=== PATIENT | female | born 1985 | race Caucasian/White ===

== ENCOUNTER 2021-01-04 22:48 | Inpatient (IN) ==
[2021-01-04] MEDS ORDERED: OXYTOCIN 30 UNITS/500 ML BAG IV PRN (23:36)
[2021-01-04] MEDS ORDERED: LACTATED RINGER'S 1,000 ML IV PRN (23:36)
[2021-01-05 00:11] LABS: Hematocrit (blood only) 38.3 % (37-47); Hemoglobin 12.9 g/dL (12.0-16.0); Mean Corpuscular Hemoglobin 30.1 pg (25-34); Mean Corpuscular Hgb Conc 33.7 g/dL (32-36); Mean Corpuscular Volume 89.3 fL (80-100); Mean Platelet Volume 11.6 fL (7.4-10.4); Platelet Count 227 K/uL (130-400); RDW Coefficient of Variation 12.7 % (11.5-14.5); Red Blood Count 4.29 M/uL (4.2-5.4); White Blood Count 11.52 K/uL (4.8-10.8)
[2021-01-05] MEDS ORDERED: LIDOCAINE HCL 1% 20 ML VIAL ONE (02:25)
--- NOTE | 2021-01-05 03:13 | Delivery Summary ---
Vaginal Delivery Summary Date of Service January 05, 2021 Spontaneous vaginal delivery the patient arrived in active labor she did not request epidural she was group B strep negative Covid negative she rapidly progressed to fully dilated however at this stage when she started to push her heart rates stayed at a bradycardia of 60-70 and sometimes reaching as high as 100 after approximately 10 minutes of trying to push through this I recommended a small episiotomy the patient agreed episiotomy was cut with scissors and patient was able to deliver in occiput anterior position mouth and then nares were suctioned there was no meconium there was no nuchal cord gentle traction baby delivered without difficulty live vigorous infant cord clamped and cut cord gases obtained placenta removed with gentle traction IV Pitocin started should be noted there was an irregularity in the cord will be sent to pathology. Right medial lateral episiotomy repaired with 3-0 Vicryl sponge instrument counts correct rectal exam negative for defects estimated blood loss 150 mL [facility] Vaginal Delivery Charge Vaginal Delivery Codes: 23688 global code for the antepartum, delivery, and post-
[2021-01-05 04:52] LABS: Cord Venous Blood HCO3 24 mmol/L (18.4-26.8); Cord Venous Blood PCO2 50 mmHg (30.4-57.2); Cord Venous Blood PO2 22 mmHg (14.1-43.3); O2 Saturation Cord Venous Bld < 60.0 % (<68)
[2021-01-05] MEDS ORDERED: BENZOCAINE 20% AER SPR 82.5 GM CAN EXT PRN (05:43)
[2021-01-05] MEDS ORDERED: OXYTOCIN 30 UNITS/500 ML BAG IV PRN (05:43)
[2021-01-05] MEDS ORDERED: HYDROCORTISONE ACETATE 25 MG SUPP PR PRN (05:43)
[2021-01-05] MEDS ORDERED: DIPHTHERIA/TETANUS/PERTUSSIS 0.5 ML SYR/VIAL IM ONE (05:43)
[2021-01-05] MEDS ORDERED: ACETAMINOPHEN 325 MG TAB PO PRN (05:43)
[2021-01-05] MEDS ORDERED: oxyCODONE/ACETAMINOPHEN 5mg/325mg TAB PO PRN (05:43)
[2021-01-05] MEDS ORDERED: bisacodyL 10 MG SUPP PR PRN (05:43)
[2021-01-05] MEDS ORDERED: SUPERCREAM 0.870% 15 GM JAR EXT PRN (05:43)
--- NOTE | 2021-01-05 07:25 | Obstetrical Progress Note ---
Date of Service January 05, 2021 Assessment & Plan (1) state: well, cont current care Subjective Ambulation: ambulating normally Voiding: no voiding problems Diet Tolerance:: regular diet Lochia:: Small Feeding Type:: breast feeding Current Pain Level(1-10): 2 Results & Data ([facility]) Vital Signs (Past 12 Hours) Vital Signs Temp Pulse Pulse Resp BP BP 01/05/21 05:15 98.2 F 64 16 104/67 01/05/21 04:46 64 16 104/67 01/05/21 04:31 66 18 115/67 01/05/21 04:15 62 18 116/71 01/05/21 04:01 67 16 114/68 01/05/21 03:45 69 16 118/70 01/05/21 03:30 76 18 126/74 01/05/21 03:15 75 16 121/72 01/05/21 03:01 78 16 115/69 01/05/21 02:45 98.2 F 73 18 115/68 01/05/21 01:04 98.1 F 53 L 20 142/83 H 01/04/21 23:26 63 132/88 01/04/21 23:05 98.2 F 67 18 154/90 H 01/04/21 23:01 98.2 F 67 18 154/90 H
[2021-01-05] MEDS: DOCUSATE SODIUM 100 MG CAP PO SCH ×2 (07:58→21:08)
[2021-01-05] MEDS: PRENATAL VITAMIN 1 TAB PO SCH (07:58)
[2021-01-05] MEDS: IBUPROFEN 600 MG TAB PO PRN ×3 (08:01→21:08)
[2021-01-06 06:32] LABS: Hematocrit (blood only) 35.4 % (37-47); Mean Corpuscular Hemoglobin 30.5 pg (25-34); Mean Corpuscular Hgb Conc 33.9 g/dL (32-36); Mean Corpuscular Volume 89.8 fL (80-100); Platelet Count 203 K/uL (130-400); RDW Standard Deviation 42.5 fL (36.4-46.3); Red Blood Count 3.94 M/uL (4.2-5.4); White Blood Count 9.42 K/uL (4.8-10.8)
--- NOTE | 2021-01-06 06:53 | Obstetrical Progress Note ---
Date of Service January 06, 2021 Assessment & Plan (1) state: Recovering normally. Continue routine care. Patient may consider d/c this evening but is more likely to want to stay until PPD#2. Subjective Ambulation: ambulating normally Voiding: no voiding problems Passing Gas:: Yes Diet Tolerance:: regular diet Lochia:: Small Feeding Type:: breast feeding Physical Exam Constitutional WD/WN, vitals as above Eyes PERRL, conjunctivae normal, anicteric sclerae Neck normal visual inspection Respiratory normal respiratory effort and able to speak in complete sentences; no res piratory distress and no labored breathing Cardiovascular Rate/Rhythm: regular rate and regular rhythm Extremities: no edema Chest (Breasts) Chest: normal inspection of chest Gastrointestinal (Abdomen) Inspection/Auscultation: abdomen normal to inspection Soft, postgravid Psychiatric A+Ox3, euthymic affect Genitourinary OB Exam Abdomen: + fundal height Fundus: + firm and + relation to umbilicus (fundus just below umbilicus); not tender Results & Data ([facility]) Vital Signs (Past 12 Hours) Vital Signs Temp Pulse Resp BP Pulse Ox 01/05/21 23:30 97.9 F 81 16 103/65 98 01/05/21 21:00 98.1 F 63 16 115/71 97
[2021-01-06] MEDS: DOCUSATE SODIUM 100 MG CAP PO SCH ×2 (09:05→19:55)
[2021-01-06] MEDS: IBUPROFEN 600 MG TAB PO PRN ×2 (09:05→16:11)
[2021-01-06] MEDS: PRENATAL VITAMIN 1 TAB PO SCH (09:05)
[2021-01-06] MEDS ORDERED: bisacodyL 5 MG TABEC PO SCH (20:00)
[2021-01-07] MEDS: IBUPROFEN 600 MG TAB PO PRN (04:41)
[2021-01-07 06:42] LABS: Hematocrit (blood only) 34.8 % (37-47); Hemoglobin 11.9 g/dL (12.0-16.0)
--- NOTE | 2021-01-07 07:50 | Obstetrical Progress Note ---
Date of Service January 07, 2021 Assessment & Plan (1) state: PP2 s/p , meeting all milestones. s/p rhogam. Stable for discharge home today Subjective Ambulation: ambulating normally Voiding: no voiding problems Passing Gas:: Yes Diet Tolerance:: regular diet Lochia:: Small Feeding Type:: breast feeding Pain well managed with medication Review of Systems Denies fevers, chills, n/v, KRAMER, CP, SOB Physical Exam Constitutional WD/WN, vitals as above no acute distress Respiratory normal respiratory effort, lungs clear to auscultation Cardiovascular RRR, no murmur, no edema Gastrointestinal (Abdomen) Percussion/Palpation: abdomen soft; abdomen nontender fundus firm at umbilicus and NT Musculoskeletal BLE symmetric, nonerythematous, nontender Results & Data ([facility]) Vital Signs (Past 12 Hours) Vital Signs Temp Pulse Resp BP Pulse Ox 01/06/21 23:40 98.1 F 67 18 102/65 01/06/21 19:50 98.1 F 68 16 105/73 97
[2021-01-07] MEDS: DOCUSATE SODIUM 100 MG CAP PO SCH (08:17)
[2021-01-07] MEDS: PRENATAL VITAMIN 1 TAB PO SCH (08:17)
== END 2021-01-07 12:20 | disposition home or self-care (01) | DRG 807 ==
LOC: OPB 22:48 → 4S1 22:49 → 4S2 01-05 05:41

== ENCOUNTER 2022-09-28 10:41 | Inpatient (IN) ==
[2022-09-28] MEDS ORDERED: LIDOCAINE 1% LOCAL 20 ML VIAL INFIL PRN (11:02)
[2022-09-28] MEDS ORDERED: LACTATED RINGER'S 1,000 ML IV PRN (11:02)
[2022-09-28] MEDS ORDERED: OXYTOCIN 30 UNITS/500 ML BAG IV PRN ×2 (11:02→16:35)
[2022-09-28 11:48] LABS: Hematocrit (blood only) 36.5 % (34.1-44.9); Hemoglobin 12.4 g/dl (12.0-16.0); Mean Corpuscular Volume 88.2 fL (80.0-100.0); Mean Platelet Volume 11.1 fL (9.4-12.3); Platelet Count 226 K/uL (130-400); RDW Coefficient of Variation 12.1 % (11.5-14.5); RDW Standard Deviation 38.7 fL (36.4-46.3); Red Blood Count 4.14 M/uL (3.93-5.22); White Blood Count 11.16 K/ul (4.8-10.8)
--- NOTE | 2022-09-28 14:37 | History & Physical Report ---
Date of Service September 28, 2022 Assessment & Plan (1) Supervision of normal intrauterine in multigravida: (2) Need for rhogam due to Rh negative mother: (3) Normal labor: Plan - Patient admitted to labor and delivery for active labor - Patient presented to outpatient OB clinic with concern for contractions overnight and was found to be 6 cm dilated - Patient was send to L&D for labor and subsequently admitted - Patient currently 7.5/100/-1 w/ evidence of contractions - Contractions progressing, consider ROM - Patient declines epidural - Labs ordered History of Present Illness Chief Complaint: Labor Primary Care Provider: Cayla Hunt MD Natalie is a 36F currently at 40 3/7 with ELICEO 09/25/22 determined by LMP of 12/19/21 who presented to L&D for labor. Complications: Rh - Movement: Yes Fluid Loss/ROM: No Bloody show/discharge: Light spotting External FHT and uterine monitor: Category 1, reactive tracing, good FHT variability, average 135, contractions q3mins Last OB appointment: 09/27, regular care Labs: Blood Type: O- Antibody Screen: Negative Hg/Hct (today): 12.4/36.5 WBC/Plt (today): 11.16/226 Rubella: Immune RPR: Non-reactive Gonorrhea: Negative Chlamydia: Negative HIV: Negative HbSAg: Negative GBS: Negative Cff-DNA: Low risk Panorama: Low risk Allergies Allergy/AdvReac Type Severity Reaction Status Date / Time No Known Allergies Allergy Verified 09/28/22 11:11 Home Medications Medication Instructions Recorded Confirmed Type prenat.vits,katarina,[id number] 1 tab PO DAILY 06/16/20 09/28/22 History ascorbic acid (vitamin C) 2 tab PO DAILY 08/17/20 09/28/22 History Patient History Medical History (Updated 09/28/22 @ 14:33 by David Del Cid DO) Encounter for anatomic survey History of chicken pox Need for rhogam due to Rh negative mother Prior miscarriage with , antepartum Spontaneous Surgical History No history of previous surgery Family History Father Skin cancer Denies family history of Ovarian cancer Breast cancer Colorectal cancer Social History (Updated 02/07/22 @ 14:12 by Ivone Hernandez) Smoking Status: Never smoker Second Hand Exposure: No; Hx Alcohol Use: No Hx Substance Use: No Preferred Language: Indonesian Communication Ability: Effective 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 Beliefs That Will Affect Care: None marital status: marital status details: Kole Mcgee (34) [phone] Current Living Situation: Spouse Current Living Situation Comment: son current occupational status: employed current occupation: [employer] Other Information That Helps Us Care for You: No Feels Safe at Home: Yes Safety Concerns: Feels Safe At This Time Assistive Devices: None Review of Systems - Denies fever, chills, sweats - Denies dyspnea or pleuritic pain - Denies chest pain, palpitations, or pressure - Denies breast pain - Denies dysuria - Denies headache or visual changes Physical Exam Physical Exam: General: Alert, oriented. No acute distress. Cardiac: Regular rate and rhythm, no murmurs/rubs/gallops. Respiratory: Clear to auscultation bilaterally a/p, no wheezes/rales/rhonchi. No increased work of breathing. Symmetrical chest rise. No respiratory distress. Abdomen: Gravid; reactive FHTs; Position: Vertex via Jamar maneuver Pelvic: Dilation 7.5 cm; Effacement 100; Station -[address] English Lower Extremities: No lower extremity edema or swelling. No deep calf pain. Jessica's negative bilaterally. Results & Data ([facility]) Vital Signs (Past 12 Hours) Vital Signs Temp Pulse Resp BP 09/28/22 13:52 70 137/89 09/28/22 10:50 82 113/75 09/28/22 10:56 36.9 C 20 Resident Activity Tracking Resident Involvement: Resident Care Provided Care Provided: OB Delivery
[2022-09-28] MEDS ORDERED: BENZOCAINE 20% AER SPR 82.5 GM CAN EXT PRN (16:35)
[2022-09-28] MEDS ORDERED: DIPHTHERIA/TETANUS/PERTUSSIS 0.5 ML SYR/VIAL IM ONE (16:35)
[2022-09-28] MEDS ORDERED: ACETAMINOPHEN 325 MG TAB PO PRN (16:35)
[2022-09-28] MEDS ORDERED: HYDROCORTISONE ACETATE 25 MG SUPP PR PRN (16:35)
[2022-09-28] MEDS ORDERED: bisacodyL 10 MG SUPP PR PRN (16:35)
--- NOTE | 2022-09-28 16:36 | Delivery Summary ---
Vaginal Delivery Summary Date of Service September 28, 2022 Vaginal Delivery Summary Spontaneous vaginal delivery the patient was term uncomplicated second baby she presented in active labor at 5 to 6 cm labor naturally without medication and progressed to fully dilated was able to push over several contractions delivering a baby in occiput anterior position fluid was clear no nuchal cord gentle traction the baby no excessive force easy delivery live vigorous male cord clamped and cut cord gases sent Cord blood sent placenta removed with gentle traction IV Pitocin started second-degree tear was repaired first by injecting local anesthetic and then repairing with 3-0 Vicryl sponge and instrument counts correct estimated blood loss 200 mL
[2022-09-28 16:58] LABS: Base Excess Cord Venous Blood -1.5 mEq/L (-7.7-1.9); Cord Venous Blood HCO3 25 mmol/L (18.4-26.8); Cord Venous Blood PCO2 47 mmHg (30.4-57.2); Cord Venous Blood PO2 21 mmHg (14.1-43.3); Cord Venous Blood pH 7.33 (7.20-7.44); O2 Saturation Cord Venous Bld < 60.0 % (<68)
[2022-09-28 16:59] LABS: Base Excess Cord Arterial Bld -3.4 mEq/L (-9-1.8); CO2 Cord Arterial Blood 58 mmHg (39.1-73.5); HCO3 Cord Arterial Blood 25 mmol/L (19.7-28.5); Oxygen Sat Cord Arterial Blood < 60.0 % (<60); PO2 Cord Arterial Blood 7 mmHg (4.1-31.7); pH Cord Arterial Blood 7.24 (7.1-7.38)
[2022-09-28] MEDS: DOCUSATE SODIUM 100 MG CAP PO SCH (20:52)
[2022-09-29] MEDS: IBUPROFEN 600 MG TAB PO PRN ×3 (02:56→13:45)
--- NOTE | 2022-09-29 05:56 | Obstetrical Progress Note ---
Date of Service September 29, 2022 Assessment & Plan (1) care following vaginal delivery: (2) Need for rhogam due to Rh negative mother: Plan - Overall, feeling well and eating well today - Infant feeding going well without concern - Urinating and passing gas appropriately - Ambulating well in room - Pain controlled w/ Ibuprofen/Tylenol - Hgb pending - Rh - mother, Rh - baby - Vitals stable and wnl - Routine PP care progressing well - Anticipate discharge today - Recommending f/u outpatient in 6 weeks Admission and Anticipated Discharge Date Admission Date: September 28, 2022 Supervising Physician Co-Signing Physician Notes Resident Physician Supervision Note: I was present with Dr. Del Cid during the history and exam. I discussed the case with the resident and agree with the findings and plan as documented in the note. Any exceptions or clarifications are listed here: [None] Documented By: Ave English MD, FACOG Subjective Natalie is a 36F who is PPD #1 following vaginal delivery at 40 3/7. She reports feeling overall well this morning and wishes to go home. - Ambulation - well throughout room - Voiding/Seals - independent voids, no dysuria or pressure - Gas/Stool - passing gas, no bowel movement - Diet - regular, no nausea or emesis - Lochia - diminishing, light amount - Infant Feeding Type - breast feeding - Pain Level - 6/10, controlled with Ibuprofen/Tylenol Review of Systems - Denies fever, chills, sweats - Denies shortness of breath, difficulty breathing, chest pain, palpitations, chest pressure. - Denies breast pain. - Denies dysuria. - Denies headache or changes in vision. Physical Exam Physical Exam: General: Alert, oriented. No acute distress. Cardiac: RRR, normal S1/S2, no murmurs/rubs/gallops. Respiratory: Non-labored, CTAB, no wheezes/rales/rhonchi. Symmetric chest rise. Abdomen: Soft, nontender, nondistended. Bowel sounds present. Uterus: Uterine fundus firm, palpable 2 cm below umbilicus. Lower Extremities: No lower extremity edema or swelling. No deep calf pain. Jessica's negative bilaterally. Results & Data ([facility]) Vital Signs (Past 12 Hours) Vital Signs Temp Pulse Pulse Resp BP BP Pulse Ox 09/29/22 03:29 36.9 C 59 L 16 104/68 09/28/22 23:05 37.0 C 58 L 16 124/82 95 09/28/22 19:58 36.8 C 62 16 105/68 94 09/28/22 18:35 20 09/28/22 18:05 20 09/28/22 19:36 93 H 110/75 09/28/22 19:20 75 113/67 09/28/22 19:06 85 112/72 09/28/22 18:50 75 112/75 09/28/22 18:36 75 105/69 09/28/22 18:21 88 120/82 09/28/22 18:05 71 119/73 O2 Del Method 09/29/22 03:29 Room Air 09/28/22 23:05 Room Air 09/28/22 19:58 Room Air 09/28/22 18:35 09/28/22 18:05 09/28/22 19:36 09/28/22 19:20 09/28/22 19:06 09/28/22 18:50 09/28/22 18:36 09/28/22 18:21 09/28/22 18:05 Resident Activity Tracking Resident Involvement: Resident Care Provided Care Provided: OB Delivery
[2022-09-29 07:17] LABS: Hematocrit (blood only) 33.5 % (34.1-44.9); Hemoglobin 11.5 g/dl (12.0-16.0); Mean Corpuscular Hemoglobin 30.1 pg (25.0-34.0); Mean Corpuscular Hgb Conc 34.3 g/dL (32.0-36.0); Mean Corpuscular Volume 87.7 fL (80.0-100.0); Mean Platelet Volume 10.9 fL (9.4-12.3); Platelet Count 210 K/uL (130-400); RDW Coefficient of Variation 12.2 % (11.5-14.5); RDW Standard Deviation 38.9 fL (36.4-46.3); Red Blood Count 3.82 M/uL (3.93-5.22)
[2022-09-29] MEDS ORDERED: PRENATAL VITAMIN 1 TAB PO SCH (08:00)
[2022-09-29] MEDS: DOCUSATE SODIUM 100 MG CAP PO SCH ×2 (08:46→16:49)
[2022-09-29] MEDS ORDERED: bisacodyL 5 MG TABEC PO SCH (20:00)
== END 2022-09-29 17:00 | disposition home or self-care (01) | DRG 807 ==
LOC: OPB 10:41 → 4S1 10:44 → 4E2 19:57